=== PATIENT | female | born 1940 | race Hispanic/Latino ===

== ENCOUNTER → 2020-07-21 | Outpatient (CLI) | payer MEDICARE ==
[2020-07-21 09:16] LABS: INR 0.93 (0.85-1.15); PARTIAL THROMBOPLASTIN TIME 27.2 SEC (26.3-35.5); PROTHROMBIN TIME 10.1 SEC (9.6-11.6)
--- NOTE | 2020-07-21 09:35 | NUR ---
US GUIDED BIOPSY OF LEFT BREAST MASS PROCEDURE PERFORMED BY DR. ZIMMERMAN. PUNCTURE SITE LEFT LATERAL BREAST AND PATIENT TOLERATED PROCEDURE WELL. SPECIMEN X 4 COLLECTED AND SENT TO LAB. TISSUE MARKER DEPLOYED TO BIOPSY SITE. END OF PROCEDURE AT 0950. BIOPSY NEEDLE REMOVED AND DRESSING APPLIED. NO BLEEDING NOTED. DISCHARGE INSTRUCTIONS GIVEN TO PATIENT AND VERBALIZED UNDERSTANDING. DISCHARGED VIA AMBULATORY STABLE, AAO X 3 WITH NO C/O PAIN.
== END | disposition home or self-care (01) ==
LOC: RAH 07:38
PROVIDERS: ATTEND Student in an Organized Health Care Education/Training Program
DX: N63.42 Unspecified lump in left breast, subareolar (principal)
CPT/HCPCS: 19083; 36415; 85610; 85730; A4215 ×3; A6260